=== PATIENT | female | born 1990 | race Caucasian/White ===

== ENCOUNTER → 2019-03-07 13:34 | Outpatient (BNVA) | payer OTHER, SELFPAY | PROVIDERS: Visit Provider Obstetrics & Gynecology | DX: O99.342 Other mental disorders complicating pregnancy, second trimester (principal) | CPT/HCPCS: 81003; 84315 ==

== ENCOUNTER → 2019-04-22 09:34 | Outpatient (BNVA) | payer OTHER, MEDICAID, SELFPAY | PROVIDERS: PCP Obstetrics & Gynecology; Visit Provider Obstetrics & Gynecology | DX: Z34.82 Encounter for supervision of other normal pregnancy, second trimester (principal) | CPT/HCPCS: 82950; 84315; 85027 ==

== ENCOUNTER → 2019-06-27 14:31 | Outpatient (BNVA) | payer MEDICAID, SELFPAY | PROVIDERS: PCP Obstetrics & Gynecology; Visit Provider Obstetrics & Gynecology | DX: Z34.83 Encounter for supervision of other normal pregnancy, third trimester (principal) | CPT/HCPCS: 84315; 87081 ==

== ENCOUNTER 2019-07-08 07:51 | Outpatient (CLI) | payer OTHER, MEDICAID, SELFPAY ==
[2019-07-08 07:59] VITALS: BP 140/79; PULSE 101; BMI 29.2
[2019-07-08 08:15] VITALS: BP 113/61; PULSE 93
[2019-07-08 08:30] VITALS: BP 123/73; PULSE 84
[2019-07-08 08:45] VITALS: BP 127/74; PULSE 107
[2019-07-08 09:48] VITALS: BP 119/69; PULSE 87
[2019-07-08 10:03] VITALS: BP 0/0; BP 135/71; PULSE 91
--- NOTE | 2019-07-08 10:30 | PC.NURSE ---
Discussed with [facility] the need for appointment for patient. Appointment scheduled for Monday 07/10 @ 0945 check-in Discussed in length with the patient the need for her to attend appointment. Patient verbalized understanding. Discussed with patient the need for her to return to L&D if her water broke, she had a fever, contractions that were five minutes apart and increasing in strength. Also discussed with patient that she could take over the counter Tylenol 1000mg for discomfort. Patient verbalized understanding.
== END 2019-07-08 10:19 | disposition home or self-care (01) ==
LOC: OPOB 07:53 → OBGYN 10:15
PROVIDERS: PCP Obstetrics & Gynecology; Visit Provider Obstetrics & Gynecology
DX: O26.899 Other specified pregnancy related conditions, unspecified trimester (principal); Z3A.00 Weeks of gestation of pregnancy not specified; R10.9 Unspecified abdominal pain
CPT/HCPCS: 59025; 99211

== ENCOUNTER 2019-07-08 23:25 | Inpatient (IN) | payer MEDICAID, SELFPAY ==
[2019-07-08 23:13] VITALS: BMI 28.8
[2019-07-08 23:14] VITALS: RESP 18; TEMP 37.1
[2019-07-08 23:17] VITALS: BP 136/83; PULSE 92
[2019-07-08] MEDS: lactated ringers 1,000 ML 999 ML IV (23:44)
[2019-07-08 23:48] VITALS: BP 142/86; PULSE 80
[2019-07-09] VITALS (47 sets, daily range): BP systolic 0–153; BP diastolic 0–93; PULSE 68–102; RESP 18; TEMP 36.4–36.9; O2SAT 97–98
[2019-07-09 00:13] LABS: Basophils # 0.1 10^3/uL (0.0-0.1); Basophils % 0.4 %; Eosinophils # 0.1 10^3/uL (0.0-0.8); Eosinophils % 0.8 %; Hematocrit 33.3 % (37.0-47.0); Hemoglobin 11.3 g/dL (11.5-15.3); Lymphocytes # 1.7 10^3/uL (0.8-4.8); Lymphocytes % 14.5 %; Mean Corpuscular HGB Conc 33.9 g/dL (30.0-36.0); Mean Corpuscular Hemoglobin 31.7 pg (28.0-34.0); Mean Corpuscular Volume 93.3 fL (81-99); Mean Platelet Volume 11.2 fL (7.4-10.4); Monocytes # 0.8 10^3/uL (0.2-0.9); Monocytes % 6.4 %; Neutrophils % 76.1 %; Nucleated Red Blood Cells % 0 %; Platelet Count 191 10^3/cmm (130-400); Red Blood Count 3.57 10^6/uL (4.1-5.3); Red Cell Distribution Width 12.5 % (12.1-15.1); White Blood Count 11.8 10^3/uL (4.0-10.0)
--- NOTE | 2019-07-09 00:15 | ANES.PREANE2 ---
Pre-Anesthetic Assessment Pre-Anesthetic Assessment: Height/Weight: Height 1.73 m Weight 86.035 kg Temp Pulse Resp BP Pulse Ox 98.8 F 92 18 129/67 98 07/08/19 23:14 07/09/19 00:37 07/08/19 23:14 07/09/19 00:37 07/09/19 00:32 Preop Diagnosis: IUP Proposed Procedure: labor epidural Was Beta Francisco taken within 24 hours: N/A Last intake: 1999 Social: Social History: No alcohol and No tobacco Exam: Pre-Anes Outpt Exam: alert, oriented x 3, clear to auscultation bilaterally and regular rate & rhythm Airway: Submandibular: WNL Cervical ROM: WNL MP: 2 History/ROS: No significant history except as noted Pulmonary: Pulmonary: None reported CV/HEM: CV/HEM: Murmur : : None reported Hepatic: Hepatic: None reported GI: GI: None reported Metabolic: Metabolic: None reported Musc/skel: Musc/skel: None reported Neuropsych: Neuropsych: Anxiety Anesthetic Plan: ASA status: 2 Anesthesia: Anesthesia Evaluation and Regional (specify below) Risk of > 500 ml blood loss (7ml/kg in children): No Meds/Allergies Current Medications: Current Medications Generic Name Dose Route Start Last Admin Trade Name Freq PRN Reason Stop Dose Admin Dextrose/Lactated Ringer's 1,000 mls @ 125 m ls/hr 07/08/19 23:30 07/09/19 00:34 Dextrose 5%-Lact ated Ringers IV Not Given .Q8H J LUIS Lactated Ringer's 1,000 mls @ 999 m ls/hr 07/08/19 23:25 07/09/19 00:39 Lactated Ringers IV 999 mls/hr .Q1H1M PRN Administration ANESTHESIA Ropivacaine 200 mg in 100 mls @ 13 mls/hr 07/08/19 23:30 07/09/19 00:39 Naropin Premix EPIDURAL 13 mls/hr .Q7H42M J LUIS Administration PFSH Anesthesia PFSH: Social History Smoking and tobacco status: never smoked Alcohol intake: never Additional social history: Well balanced diet Female Reproductive History: : 2 Data Anesthesia CBC & Chem 7: 07/08/19 23:30 Other Labs: Laboratory Results - last 48 hr 07/08/19 23:30 WBC 11.8 H RBC 3.57 L Hgb 11.3 L Hct 33.3 L MCV 93.3 MCH 31.7 MCHC 33.9 RDW 12.5 Plt Count 191 MPV 11.2 H Neut % (Auto) 76.1 Lymph % (Auto) 14.5 [place] % (Auto) 6.4 Eos % (Auto) 0.8 Baso % (Auto) 0.4 Neut # (Auto) 9.0 H Lymph # (Auto) 1.7 [place] # (Auto) 0.8 Eos # (Auto) 0.1 Baso # (Auto) 0.1 Nucleated RBC % (auto) 0 Nucleated RBCs # 0.0 Cardiac Studies: No Data to Display
[2019-07-09] MEDS: lactated ringers 1,000 ML 999 ML IV (00:39)
--- NOTE | 2019-07-09 00:43 | ANES.PROC ---
Anesthesia Procedures Procedure/Date: 07/09/19 Epidural: Time Out Performed: Yes Consents Signed: Procedure Consent Consent: requested by attending/covering physician Lumbar Level: L4-L5 Epidural position: sitting Epidural procedure: sterile prep of area, 1% lidocaine to numb the area, 18 g needle, negative for paresthesia passed, neg for paresthesia, test dose given, 1.5% xylocaine 1:200k epi (5ml), placed PCEA, no systemic response, sterile dressing applied, L.U.D. no apparent complications and 0.2% Ropiavacaine @ mls/hr (13)
[2019-07-09] MEDS: dextrose 5%-lactated ringers 1,000 ML 125 ML IV (01:05)
[2019-07-09] MEDS: oxytocin 30 UNIT/500 ML BAG IV (04:11)
[2019-07-09] MEDS: lidocaine 2% INJ 20 mL INJECTION (05:54)
--- NOTE | 2019-07-09 06:26 | PM.DELIVERY ---
 Delivery Note: Date of delivery: July 09, 2019 Pre-delivery diagnoses: 28-year-old 2 para 1-0-0-1 at 39 weeks and 5 days gestation Active labor GBS negative Depression on fluoxetine Limited care Post-delivery diagnoses: Vaginal delivery on 07/09/2019 Depression controlled on fluoxetine Limited care Procedure: Vaginal delivery on 07/09/2019 Op report anesthesia: Epidural and Local Delivering Physician: Dr. Zoey Huang Pre-Delivery Course: Ms. Avelar is a 28-year-old 2 para 1-0-0-1 at 39 weeks and 5 days who presented to labor and delivery on 07/08/2019 with reports of contractions that have been happening with more intensity and frequency of the whole day. She had been seen on Thursday morning on labor and delivery and was 3 cm and when she made no change was discharged home. Upon arrival to labor and delivery at 11 PM on 07/08/2019 she was noted to be 5 to 6 cm, 90% effaced and -3 station. tracing was category 1 with regular contractions every 5 minutes. She desired an epidural. This was placed without any difficulty. She was comfortable after this. She had slow progression and made very minimal cervical change and at 4 AM she was 7 cm, 95% and -2 station. Her contractions had also spaced out to every 7 minutes. As a result Pitocin was started to augment labor titrated to a maximum of 3 mIU. With this she started to have regular contractions and was fully dilated at 4:50 AM at which point she also had spontaneous rupture of membranes with clear fluid. She was noted to be 0 station at this time and was comfortable. She was set up in lithotomy position ready to push. Delivery: She was set up in lithotomy position and was pushing effectively. She was noted to be +3 station and continued pushing well. While she was pushing there were late decelerations and IV fluid bolus and oxygen was applied. There was a tight band on the perineum and as a result this area was infiltrated with lidocaine 2% and a right mediolateral episiotomy was cut. The head delivered in KEY position, no nuchal cord was present. The shoulders and rest of the body followed immediately afterwards. The baby's mouth and nose were suctioned and the baby was placed on the mother's belly. Once cord pulsations stopped the cord was clamped and cut by the father of the baby. Placenta delivered spontaneously intact with membranes and was discarded. The fundus was noted to be firm and well contracted. The vagina and cervix were inspected and no cervical or sulcal lacerations were noted. The perineum was intact except for right mediolateral episiotomy which was second-degree and repaired with 3-0 Vicryl in a continuous interlocking fashion. Good hemostasis and reapproximation was obtained. Baby boyRafael born at 5:41 AM on 07/09/2019 with 8/9, weighing 7 pounds 5 ounces, 3305 g, 21 inches long. Placenta was delivered spontaneously intact with membranes at 5:46 AM. Cotyledons were intact , eccentrically inserted umbilical cord with 3 vessels noted. Estimated blood loss 350 mL. Complications-none, both baby and mother were left to recovery in a stable condition. She desires her son to have a circumcision and plan will be to have circumcision performed after clearance from deputy bailiff. 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
--- NOTE | 2019-07-09 06:55 | PC.NURSE ---
Shana with [facility] was called and hotline report was made
[2019-07-09] MEDS: prenatal vitamin Capsule 1 CAP PO (08:26)
[2019-07-09] MEDS: fluoxetine 10 mg Capsule PO (08:27)
[2019-07-09] MEDS: docusate sodium 100 mg Capsule PO ×2 (08:27→17:51)
--- NOTE | 2019-07-09 09:04 | PC.NURSE ---
Patient attempted to urinate and was unsuccessful. Will try again in 30 mins-1 hour.
--- NOTE | 2019-07-09 09:05 | PC.NURSE ---
Patient ambulated to room assisted by nurse. Ice pack applied to perineum.
[2019-07-09] MEDS: lanolin oint 7 gm 1 APPLIC TOPICAL (09:54)
[2019-07-09] MEDS: benzocaine-menthol 78 gm Canister 1 SPRAY TOPICAL (09:55)
[2019-07-09] MEDS: HYDROcodone-acetaminophen 5-325 mg Tablet 1 TAB PO (12:11)
[2019-07-09 20:03] LABS: Hematocrit 34.3 % (37.0-47.0); Hemoglobin 11.7 g/dL (11.5-15.3); Mean Corpuscular HGB Conc 34.1 g/dL (30.0-36.0); Mean Corpuscular Hemoglobin 32.9 pg (28.0-34.0); Mean Corpuscular Volume 96.3 fL (81-99); Mean Platelet Volume 10.8 fL (7.4-10.4); Platelet Count 160 10^3/cmm (130-400); Red Blood Count 3.56 10^6/uL (4.1-5.3); Red Cell Distribution Width 12.6 % (12.1-15.1); White Blood Count 12.9 10^3/uL (4.0-10.0)
[2019-07-10 04:00] VITALS: BP 120/75; PULSE 82; RESP 18; TEMP 36.8
[2019-07-10] MEDS: prenatal vitamin Capsule 1 CAP PO (09:23)
[2019-07-10] MEDS: fluoxetine 10 mg Capsule PO (09:23)
[2019-07-10] MEDS: docusate sodium 100 mg Capsule PO (09:24)
--- NOTE | 2019-07-10 11:00 | PM.DCS ---
Discharge Providers Date of Admission: 07/08/19 23:25 Date of Discharge: July 10, 2019 Attending Provider at Admission: Zoey Graham MD Attending Provider at Discharge: Zoey Graham MD Primary Care Provider: Flako Danielson MD Diagnoses at Discharge Discharge Diagnosis (1) Mental disorder affecting : Status: Acute Qualifiers: Trimester: third trimester Qualified Code(s): O99.343 - Other mental disorders complicating , third trimester (2) Supervision of normal : Status: Acute Qualifiers: Normal : other normal Trimester: third trimester Qualified Code(s): Z34.83 - Encounter for supervision of other normal , third trimester (3) Gastroesophageal reflux in in third trimester: Status: Acute Reason for Visit Reason for Visit: Reason For Visit: labor Hospital Course Discharge Summary: Predelivery diagnosis : 28-year-old 2 para 1-0-0-1 at 39 weeks and 5 days gestation Active labor GBS negative Depression on fluoxetine Limited care Post-delivery diagnoses: Vaginal delivery on 07/09/2019 Depression controlled on fluoxetine Limited care Procedure: Vaginal delivery on 07/09/2019 Delivering Physician: Dr. Zoey Huang Pre-Delivery Course: Ms. Avelar is a 28-year-old 2 para 1-0-0-1 at 39 weeks and 5 days who presented to labor and delivery on 07/08/2019 with reports of contractions that have been happening with more intensity and frequency of the whole day. She had been seen on Thursday morning on labor and delivery and was 3 cm and when she made no change was discharged home. Upon arrival to labor and delivery at 11 PM on 07/08/2019 she was noted to be 5 to 6 cm, 90% effaced and -3 station. tracing was category 1 with regular contractions every 5 minutes. She desired an epidural. This was placed without any difficulty. She was comfortable after this. She had slow progression and made very minimal cervical change and at 4 AM she was 7 cm, 95% and -2 station. Her contractions had also spaced out to every 7 minutes. As a result Pitocin was started to augment labor titrated to a maximum of 3 mIU. With this she started to have regular contractions and was fully dilated at 4:50 AM at which point she also had spontaneous rupture of membranes with clear fluid. She was noted to be 0 station at this time and was comfortable. She was set up in lithotomy position ready to push. Hospital course: She underwent an uncomplicated vaginal delivery on 07/09/2019. She did well on day 0 and was ambulating well, tolerating regular diet, voiding freely, passing flatus. She was breast-feeding without difficulty and bonding well with her son. She desired circumcision for him and this was performed on 07/10/2019 without any difficulty.. Pain was well-controlled with by mouth pain medication. She denied nausea, vomiting, fever, chills, shortness of breath, leg pain. She had moderate vaginal bleeding. On day #1 she continued to do well with stable vital signs and stable hemoglobin at 11.7. She was discharged home on day 1 in a stable condition as she desired early discharge. Warning signs for endometritis, mastitis, DVT/PE were reviewed with her. Post delivery activity restrictions were also reviewed with her at all her questions were answered to her satisfaction. Undecided about contraception and this will be discussed at her 6-week visit. Exam at discharge: Gen.: No acute distress Heart: S1-S2 heard, regular rate and rhythm Lungs: Clear to auscultation bilaterally Abdomen: Soft, fundus firm below umbilicus Legs: No calf tenderness, trace bilateral pitting pedal edema. Condition at discharge: Stable Physical Exam Urinary Catheter Management^: [place]: Cath Placed During This Visit: yes, but has since been removed by the nurse Reason for Continuing Indwelling Catheter: Decision to DC Catheter Urinary Catheter Date of Insertion: 07/09/19 Urinary Catheter Time of Insertion: 01:05 Date Urinary Catheter Removed: 07/09/19 Time Urinary Catheter Discontinued: 05:22 Discharge Data Data Completed and Pending: Labs from last 24 hours 07/09/19 19:54 WBC 12.9 H RBC 3.56 L Hgb 11.7 Hct 34.3 L MCV 96.3 MCH 32.9 MCHC 34.1 RDW 12.6 Plt Count 160 MPV 10.8 H Vitals: Last Vital Signs Temp 98.3 F 07/10/19 04:00 Pulse 82 07/10/19 04:00 Resp 18 07/10/19 04:00 BP 120/75 07/10/19 04:00 Pulse Ox 98 07/09/19 00:55 Discharge Plan Discharge Patient Disposition: Home, Self-Care Condition: Stable Prescriptions: New docusate sodium 100 mg Capsule 100 mg PO BID PRN (Reason: constipation) Qty: 30 RF: 0 ibuprofen 800 mg tablet 800 mg PO Q8H Qty: 30 RF: 0 Continued prenat.vits,phillip,[id number]-[id number] Tablet 1 tab PO DAILY RF: 0 fluoxetine 10 mg capsule 10 mg PO DAILY Qty: 30 RF: 12 fluoxetine 10 mg capsule RF: 0 Discharge Orders: Discharge Order (Routine); Ordered 07/10/19 Ordered By: Zoey Graham Referrals: Zoey Graham MD [Physician] - (Follow-up with Dr. 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
[2019-07-10 14:00] VITALS: BP 127/91; PULSE 108; RESP 18; TEMP 36.7; O2SAT 96
== END 2019-07-10 14:15 | disposition home or self-care (01) | DRG 807 ==
LOC: OPOB 23:26
PROVIDERS: Admitting Provider Obstetrics & Gynecology; PCP Obstetrics & Gynecology; Visit Provider Obstetrics & Gynecology
DX: O99.344 Other mental disorders complicating childbirth (principal); Z37.0 Single live birth; F32.9 Major depressive disorder, single episode, unspecified; O76 Abnormality in fetal heart rate and rhythm complicating labor and delivery; Z3A.39 39 weeks gestation of pregnancy; O75.89 Other specified complications of labor and delivery; K21.9 Gastro-esophageal reflux disease without esophagitis
CPT/HCPCS: 12345; 36415; 51702; 59409; 85025; 85027; J2001; J2795

== ENCOUNTER → 2019-08-22 14:34 | Outpatient (BNVA) | payer MEDICAID, SELFPAY | PROVIDERS: PCP Obstetrics & Gynecology; Visit Provider Obstetrics & Gynecology | DX: N89.8 Other specified noninflammatory disorders of vagina (principal); O99.345 Other mental disorders complicating the puerperium; F53.0 Postpartum depression | CPT/HCPCS: 87210 ==

== ENCOUNTER 2021-08-31 22:15 | Inpatient (IN) | payer MEDICAID, SELFPAY ==
[2021-08-31] VITALS (15 sets, daily range): BP systolic 129–185; BP diastolic 69–98; PULSE 82–111; RESP 18; O2SAT 98–100; BMI 31.9
[2021-08-31] MEDS: lactated ringers 1,000 ML 999 ML IV (22:30)
[2021-08-31 22:32] LABS: Basophils # 0.1 10^3/uL (0.0-0.1); Basophils % 0.9 %; Eosinophils # 0.3 10^3/uL (0.0-0.8); Eosinophils % 2.1 %; Hematocrit 32.7 % (37.0-47.0); Hemoglobin 11.4 g/dL (11.5-15.3); Lymphocytes # 2.4 10^3/uL (0.8-4.8); Lymphocytes % 18.9 %; Mean Corpuscular HGB Conc 34.9 g/dL (30.0-36.0); Mean Corpuscular Hemoglobin 31.4 pg (28.0-34.0); Mean Corpuscular Volume 90.1 fl (81-99); Monocytes % 7.7 %; Neutrophils # 8.69 10^3/uL (1.8-7.7); Neutrophils % 67.6 %; Nucleated Red Blood Cells % 0 %; Platelet Count 185 10^3/cmm (130-400); Red Blood Count 3.63 10^6/uL (4.1-5.3); Red Cell Distribution Width 13.3 % (12.1-15.1); White Blood Count 12.9 10^3/uL (4.0-10.0)
--- NOTE | 2021-08-31 23:02 | PM.HP ---
Providers/Chief Complaint Primary Care Provider: Flako Danielson MD Chief Complaint: Possible SROM, Cxts History of Present Illness Berna Avelar is a 31 year old G3, P2 at 39.4 weeks gestation by LMP consistent with 20-week ultrasound. Her is complicated by borderline thrombocytopenia during now resolved. The patient presented to labor and delivery triage on the evening of 08/31/2021 with concerns for contractions and spontaneous rupture of membranes around 8 PM on 08/31/2021. She began having contractions that were stronger after this. She came to labor and delivery and was noted to be 6 cm dilated upon presentation and grossly ruptured. She would like to have an epidural. The patient denies any fevers, cough, chest pains, shortness of breath, vaginal bleeding, dysuria. Medications/Allergies Home Medications Medication Instructions Recorded Confirmed Last Taken Type prenat.vits,phillip,[id number] 1 tab PO DAILY tab 03/04/19 08/31/21 08/31/21 History fluoxetine 10 mg capsule 10 mg PO DAILY #30 cap 04/22/19 08/31/21 08/31/21 Rx Allergies Allergy/AdvReac Type Severity Reaction Status Date / Time red dye Allergy Mild ALGY-Difficulty Verified 08/31/21 22:57 Breathing PFSH Acute PFSH: Medical History Depression Had depression following first prenancy. States did not require medications. Surgical History S/P Achilles tendon repair (2017) Performed in [place] Family History Grandmother Diabetes maternal Family/Other Stroke Paternal uncle Social History Smoking and tobacco status: never smoked Alcohol intake: never Additional social history: Well balanced diet Vitals/I&O/Wt Last Vital Signs Pulse 111 H 08/31/21 22:52 BP 139/79 08/31/21 22:52 Weight last 48 hrs Weight 204 lb Weight 204 lb Physical Exam Narrative: General: Alert and oriented x3 Mouth: Mucous membranes moist, pharynx non-erythematous Cardiac: Regular rate and rhythm without murmurs Lungs: Clear to auscultation bilaterally without wheezes, crackles or rhonchi Abdomen: Soft, non-tender, fundus consistent with gestational age Extremities: Trace edema in the bilateral lower extremities Data : 08/31/21 22:23 A&P Assessment and plan (1) Intrauterine : Status: Acute (2) Spontaneous rupture of amniotic membranes: Status: Acute Plan The patient is in spontaneous labor and has changed from 6 cm to 8 cm and less than 1 hour. Labs show that her platelet count is 185 today. We will try and proceed with an epidural if possible. Plan for spontaneous vaginal delivery. heart tones are in the mid 130s with moderate variability good accelerations with occasional variables. This is a category 1 tracing. All questions were answered. Proceed with routine management. Attestations Medical Necessity Statement*: The patient will be here for greater than 2 midnights due to routine intrapartum and management of labor and delivery. 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
[2021-08-31] MEDS: dextrose 5%-lactated ringers 1,000 ML 125 ML IV (23:20)
--- NOTE | 2021-08-31 23:33 | P.ANES_ITS ---
Anesthesia Procedures Procedure/Date: 08/31/21 Epidural: Time Out Performed: Yes Consents Signed: Procedure Consent Consent: from patient, risks and benefits reviewed and patient agrees to proceed Lumbar Level: L3-L4 Epidural position: sitting Epidural procedure: sterile prep of area, 1% lidocaine to numb the area, 18 g needle, negative for p aresthesia passed, test dose given, 1.5% xylocaine 1:200k epi, placed PCEA, no systemic response, sterile dressing applied, L.U.D. no apparent complications and 0.2% Ropiavacaine @ mls/hr (13) Additional Comments: LAURA at 5, taped at 14 at skin. neg CSF/neg blood return.
--- NOTE | 2021-08-31 23:34 | ANES.PREANE2 ---
Pre-Anesthetic Assessment Height/Weight: Height 1.7 m Weight 92.533 kg Pulse Resp BP Pulse Ox 94 18 185/69 99 08/31/21 23:29 08/31/21 22:19 08/31/21 23:29 08/31/21 23:29 Preop Diagnosis: IUP epidural Familial anesthetic complications: none Was Beta Francisco taken within 24 hours: N/A Was Clonidine taken within 24 hours: N/A Last intake: 1999 Social No alcohol and No tobacco Exam alert and oriented x 3 Airway Submandibular: within normal limits Cervical ROM: within normal limits Mallampati: Class II Dentition: full History/ROS No significant history except as noted Pulmonary None reported CV/HEM None reported None reported Hepatic None reported GI Gastroesophageal Reflux Disease Metabolic None reported Musc/skel None reported Neuropsych None reported Anesthetic Plan ASA status: 2 Anesthesia: Anesthesia Evaluation and MAC Risk of > 500 ml blood loss (7ml/kg in children): No Medications/Allergies Home Medications Medication Instructions Recorded Confirmed Last Taken Type prenat.vits,phillip,rqq-srjy-jnjbq 1 tab PO DAILY tab 03/04/19 08/31/21 08/31/21 History fluoxetine 10 mg capsule 10 mg PO DAILY #30 cap 04/22/19 08/31/21 08/31/21 Rx Allergies Allergy/AdvReac Type Severity Reaction Status Date / Time red dye Allergy Mild ALGY-Difficulty Verified 08/31/21 22:57 Breathing [facility] Anesthesia Medical History Depression Had depression following first prenancy. States did not require medications. Surgical History S/P Achilles tendon repair (2017) Performed in [place] Family History Grandmother Diabetes maternal Family/Other Stroke Paternal uncle Social History Smoking and tobacco status: never smoked Alcohol intake: never Additional social history: Well balanced diet Female Reproductive History : 3 Data Anesthesia : 08/31/21 22:23 Short CBC 08/31/21 Range/Units 22:23 WBC 12.9 H (4.0-10.0) 10^3/uL Hgb 11.4 L (11.5-15.3) g/dL Hct 32.7 L (37.0-47.0) % MCV 90.1 (81-99) fl Plt Count 185 (130-400) 10^3/cmm Neut % (Auto) 67.6 % Neut # (Auto) 8.69 H (1.8-7.7) 10^3/uL Cardiac Studies: No Data to Display
[2021-09-01] VITALS (36 sets, daily range): BP systolic 109–163; BP diastolic 53–125; PULSE 76–164; RESP 16; TEMP 36.7–37; O2SAT 98–99
[2021-09-01] MEDS: oxytocin 30 UNIT/500 ML BAG 600 UNIT IV (00:56)
--- NOTE | 2021-09-01 01:19 | P.PCNOB_ITS ---
Delivery Note: Date of delivery: September 01, 2021 Pre-delivery diagnoses: 1. Intrauterine at 39.5 weeks gestation 2. Borderline thrombocytopenia that has resolved 3. Spontaneous rupture of membranes Post-delivery diagnoses: 1. Intrauterine status post spontaneous vaginal delivery at 39.5 weeks gestation 2. Borderline thrombocytopenia that has resolved 3. Spontaneous rupture of membranes 4. Delivery of healthy infant male weighing 8 pounds 4 ounces with Apgars of 8 and 9 Procedure: Spontaneous vaginal delivery Delivering Physician: Jorge Lockhart MD Estimated blood loss (mL): 100 Findings: 1. Placenta intact with central umbilical cord insertion site 2. Healthy male weighing 8 pounds 4 ounces with Apgars of 8 and 9 Pre-Delivery Course: Brena Avelar is a 31 year old G3 now P3 status post spontaneous vaginal delivery at 39.5 weeks gestation by LMP consistent with 20- week ultrasound.? Her was complicated by borderline thrombocytopenia during now resolved. The patient was at home sitting on her birthing ball, when she felt a pop and lots of fluid coming out. This was around 8 PM on 08/31/2021. She began to have more painful contractions after this and presented to labor and delivery triage. She was found to be 6 cm dilation at that time. The patient received a laboring epidural. She was complete by 2359 on 08/31/2021. Delivery: The patient began pushing the following day at 00:13 on 09/01/2021. The patient pushed well and the infant delivered in the OP position at 00:52 on 09/01/2021. The 's left shoulder was the anterior shoulder and it delivered with ease. No downward pressure was necessary. The rest of the delivered easily as well. The infant's mouth and nose were bulb suctioned by myself and the infant was crying immediately upon delivery. The was placed on the mother's chest where the nurses were awaiting to care for him. The cord was clamped after approximately 1 minute. It was cut by the infant's father. Cord blood was obtained. The cord was then drained of blood and uterine massage was carried out. The placenta delivered without complication at 00:56 on 09/01/2021. The placenta was noted to be intact with a central umbilical cord insertion site. The cervix was inspected and no lacerations were noted. A second-degree perineal laceration was noted along the prior scar. This was repaired using 3-0 Vicryl in a running fashion. No lidocaine was needed as the epidural provided adequate anesthesia. Rectal exam was done and no sutures were noted in the rectum. Currently both the mother and infant are doing well. History History History 2 Term 1 Miscarriages/Ectopic 0 0 Living Children 2 Past Pregnancies Del. Date GA/Weeks Outcome Route Wt Inf Gender Labor Lgth Comp. Anesth esia Location 10/24/17 39 live - full term Vaginal 5 lb 14 oz Male [place], [place] 07/09/19 39 live - full term Vaginal 7 lb 5 oz Male [facility] Delivery Date: 07/09/19 Last Updated by: MAURILIO Solomon Dr. 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
--- NOTE | 2021-09-01 08:43 | ANE.PACU2 ---
Inpatient post-anesthesia follow up: Airway intact: Yes Vital signs: Temperature 98.1 F Pulse Rate 77 Respiratory Rate 16 Blood Pressure 123/76 Pulse Oximetry 99 Oxygen Delivery Me thod Room Air Oxygen Flow Rate Fraction of Inspir ed Oxygen Hydration adequate: Yes Nausea and vomiting: No Pain level: 1 Mental status: Baseline
[2021-09-01] MEDS: prenatal vitamin Capsule 1 CAP PO (09:02)
[2021-09-01] MEDS: ibuprofen 800 mg tablet PO ×3 (09:02→21:05)
[2021-09-01 13:54] LABS: Hematocrit 31.5 % (37.0-47.0); Hemoglobin 11.1 g/dL (11.5-15.3); Mean Corpuscular HGB Conc 35.2 g/dL (30.0-36.0); Mean Corpuscular Volume 90.8 fl (81-99); Mean Platelet Volume 10.8 fL (7.4-10.4); Platelet Count 176 10^3/cmm (130-400); Red Blood Count 3.47 10^6/uL (4.1-5.3); Red Cell Distribution Width 13.6 % (12.1-15.1)
--- NOTE | 2021-09-01 18:54 | PC.NURSE ---
1855 Pt up to bathroom. Pt passed 5 cm clot. Fundal massage done. Fundus firm. No free bleeding noted. Fundus 3 below umbilicus.
[2021-09-01] MEDS: lanolin oint 7 gm 1 APPLIC TOPICAL (22:16)
[2021-09-02 03:55] VITALS: BP 117/76; PULSE 73
[2021-09-02 03:58] VITALS: TEMP 36.6
[2021-09-02] MEDS: ibuprofen 800 mg tablet PO (09:06)
[2021-09-02] MEDS: prenatal vitamin Capsule 1 CAP PO (09:06)
--- NOTE | 2021-09-02 09:17 | P.DS_ITS ---
Discharge Providers Date of Admission: 08/31/21 22:15 Date of Discharge: September 02, 2021 Attending Provider at Admission: Jorge Lockhart MD Attending Provider at Discharge: Jorge Lockhart MD Primary Care Provider: Dr. Mira Francois Diagnoses at Discharge Discharge Diagnosis (1) Spontaneous vaginal delivery: Status: Acute Other Information Additional DC diagnoses/information: 1.? Intrauterine status post spontaneous vaginal delivery at 39.5 weeks gestation 2.? Borderline thrombocytopenia that has resolved 3.? Spontaneous rupture of membranes 4.? Delivery of healthy male weighing 8 pounds 4 ounces with Apgars of 8 and 9 Reason for Visit Reason for Visit: Possible SROM, Cxts Brief History: Berna Avelar is a 31 year old G3 now P3 status post spontaneous vaginal delivery at 39.5 weeks gestation by LMP consistent with 20-week ultrasound.? Her was complicated by borderline thrombocytopenia during now resolved. Hospital Course Hospital Course The patient was at home sitting on her birthing ball, when she felt a pop and lots of fluid coming out.? This was around 8 PM on 08/31/2021.? She began to have more painful contractions after this and presented to labor and delivery triage.? She was found to be 6 cm dilation at that time.? The patient received a laboring epidural.? She was complete by [id number] on 08/31/2021. The patient began pushing the following day at 00:13 on 09/01/2021.? The patient pushed well and the delivered in the OP position at 00:52 on 09/01/2021.? The 's left shoulder was the anterior shoulder and it delivered with ease.? No downward pressure was necessary.? The rest of the delivered easily as well.? The 's mouth and nose were bulb suctioned by myself and the infant was crying immediately upon delivery.? The was placed on the mother's chest where the nurses were awaiting to care for him.? The cord was clamped after approximately 1 minute.? It was cut by the infant's father.? Cord blood was obtained.? The cord was then drained of blood and uterine massage was carried out.? The placenta delivered without complication at 00:56 on 09/01/2021.? The placenta was noted to be intact with a central umbilical cord insertion site.? The cervix was inspected and no lacerations were noted.? A second-degree perineal laceration was noted along the prior scar.? This was repaired using 3-0 Vicryl in a running fashion.? , the patient has done very well. She has had no complications. Her bleeding is decreasing well. Her pain is well controlled. She is ambulating, voiding, passing gas and tolerating food by mouth. Routine discharge instructions were discussed. The patient will follow up with Dr. Francois as an outpatient 6 weeks . Physical Exam Narrative: General: Alert and oriented x3 Cardiac: Regular rate and rhythm without murmurs Lungs: Clear to auscultation bilaterally without wheezes, crackles or rhonchi Abdomen: Soft, mild tenderness over uterus. The uterus is firm and 2 cm below the umbilicus. Extremities: Trace edema in the bilateral lower extremities Urinary Catheter Management: [place] Latex: Cath Placed During This Visit: yes, but has since been removed by the nurse Reason for Continuing Indwelling Catheter: Other Urinary Catheter Date of Insertion: 08/31/21 Urinary Catheter Time of Insertion: 23:49 Date Urinary Catheter Removed: 09/01/21 Time Urinary Catheter Discontinued: 00:17 Discharge Data Studies Completed and Pending Laboratory Results WBC 15.0 10^3/uL (4.0-10.0) H 09/01/21 13:40 RBC 3.47 10^6/uL (4.1-5.3) L 09/01/21 13:40 Hgb 11.1 g/dL (11.5-15.3) L 09/01/21 13:40 Hct 31.5 % (37.0-47.0) L 09/01/21 13:40 MCV 90.8 fl (81-99) 09/01/21 13:40 MCH 32.0 pg (28.0-34.0) 09/01/21 13:40 MCHC 35.2 g/dL (30.0-36.0) 09/01/21 13:40 RDW 13.6 % (12.1-15.1) 09/01/21 13:40 Plt Count 176 10^3/cmm (130-400) 09/01/21 13:40 MPV 10.8 fL (7.4-10.4) H 09/01/21 13:40 Neut % (Auto) 67.6 % 08/31/21 22: Lymph % (Auto) 18.9 % 08/31/21 22:23 [place] % (Auto) 7.7 % 08/31/21 22: Eos % (Auto) 2.1 % 08/31/21 22:23 Baso % (Auto) 0.9 % 08/31/21 22:23 Neut # (Auto) 8.69 10^3/uL (1.8-7.7) H 08/31/21 22:23 Lymph # (Auto) 2.4 10^3/uL (0.8-4.8) 08/31/21 22:23 [place] # (Auto) 1.0 10^3/uL (0.2-0.9) H 08/31/21 22:23 Eos # (Auto) 0.3 10^3/uL (0.0-0.8) 08/31/21 22: Baso # (Auto) 0.1 10^3/uL (0.0-0.1) 08/31/21 22: Nucleated RBC % (auto) 0 % 08/31/21 22: Nucleated RBCs # 0.0 /100WBC 08/31/21 22:23 Vitals Last Vital Signs Temp 97.9 F 09/02/21 03:58 Pulse 73 09/02/21 03:55 Resp 16 09/01/21 16:36 BP 117/76 09/02/21 03:55 Pulse Ox 99 09/01/21 02:00 Discharge Plan Discharge Patient Disposition: Home Condition: Good Prescriptions: New ibuprofen 800 mg Tablet 800 mg PO TID Qty: 30 0RF ferrous sulfate 325 mg (65 mg iron) tablet 325 mg PO DAILY Qty: 14 0RF Continued prenat.vits,phillip,wex-yeis-weptk Tablet 1 tab PO DAILY 0RF fluoxetine 10 mg capsule 10 mg PO DAILY Qty: 30 12RF Discharge Orders: Discharge Order (Routine); Ordered 09/02/21 Ordered By: Jorge Lockhart Patient Instructions: Depression (DC), Bleeding (DC), Preeclampsia and Eclampsia After Delivery (GEN), Vaginal Delivery (DC), OB Discharge Report, OB Food/Drug Interaction Guide, Opioid Safety, OB Home Care, OB [facility] Parent Packet Discharge Attestations Time Spent in Discharge Care*: less than 30 min Quality Metrics Clinical Quality Measures [ No reported AMI, CVA or VTE this stay] Coding Level of Care Code Acute Chg FW DC note Diagnoses Spontaneous vaginal delivery O80
[2021-09-02 09:20] VITALS: BP 119/74; PULSE 95
[2021-09-02 09:26] VITALS: RESP 16; TEMP 36.6
[2021-09-02 10:13] VITALS: BP 119/74; PULSE 95; RESP 16; TEMP 36.6
== END 2021-09-02 10:13 | disposition home or self-care (01) | DRG 806 ==
LOC: OPOB 09-01 01:27 → OBGYN 09-01 01:27
PROVIDERS: Admitting Provider Family Medicine; PCP Obstetrics & Gynecology; Visit Provider Family Medicine
DX: O42.02 Full-term premature rupture of membranes, onset of labor within 24 hours of rupture (principal); O99.12 Other diseases of the blood and blood-forming organs and certain disorders involving the immune mechanism complicating childbirth; Z37.0 Single live birth; D69.6 Thrombocytopenia, unspecified; O70.1 Second degree perineal laceration during delivery; Z3A.39 39 weeks gestation of pregnancy
CPT/HCPCS: 36415; 51702; 59409; 83986; 85025; 85027; 99211; J2795